=== PATIENT | female | born 1950 | race Caucasian/White ===

== ENCOUNTER → 2021-12-14 12:38 | Outpatient (CLI) | payer MEDICARE, BC, SELFPAY ==
[2021-12-14 14:01] LABS: Appearance Urine UA CLEAR; Bilirubin Urine UA NEGATIVE (NEGATIVE); Color Urine UA YELLOW; Glucose Urine UA NEGATIVE (Negative); Ketones Urine UA 1+ (NEGATIVE); Leukocyte Esterase Urine UA NEGATIVE (NEGATIVE); Nitrite Urine UA NEGATIVE (Negative); Occult Blood Urine UA 1+ (Negative); Protein Urine UA NEGATIVE (Negative); Specific Gravity Urine UA 1.015 (1.000-1.035); Urobilinogen Urine UA 0.2 E.U./dL (0.2)
[2021-12-14 14:05] LABS: pH Urine UA 7.5 (4.5-8.0)
[2021-12-14 14:12] LABS: Bacteria Urine None Seen; Culture Indicated Urine Cult Not Indicated; RBC Urine 1-5/HPF (0-5/HPF); WBC Urine None Seen (0-5/HPF)
[2021-12-14 15:13] LABS: Add Manual Diff / Slide Review NO; Basophils Absolute Auto 0 /uL (0-100); Basophils Percent Auto 0.8 % (0-2); Eosinophils Absolute Auto 100 /uL (0-450); Eosinophils Percent Auto 1.6 % (2-4); Hematocrit 43.2 % (36-46); Hemoglobin 15.2 g/dL (12.0-16.0); Lymphocytes Absolute Auto 1400 /uL (1100-4500); Lymphocytes Percent Auto 24.3 % (25-40); Mean Corpuscular Hemoglobin 32.5 PG (26-34); Mean Corpuscular Volume 92.8 fL (80-100); Monocytes Absolute Auto 400 /uL (0-900); Monocytes Percent Auto 6.3 % (3-14); Neutrophils Absolute Auto 3900 /uL (1500-7000); Platelet Count 256 X10^3/uL (150-400); Red Blood Cell Count 4.66 X10^6/uL (4.0-5.2); Red Cell Distribution Width 13.3 % (11.6-14.8); White Blood Cell Count 5.8 X10^3/uL (4.5-11.0)
[2021-12-14 15:39] LABS: BUN Creatinine Ratio 28.6 (6-22); Blood Urea Nitrogen 16 mg/dL (7-17); Calcium 10.4 mg/dL (8.4-10.2); Carbon Dioxide 32 mmol/L (22-32); Chloride 96 mmol/L (98-107); Estimated Glomerular Filt Rate > 60.0 mL/min (>60); Glucose 86 mg/dL (80-110); HEMOLYSIS < 15 (0-50); Sodium 137 mmol/L (137-145)
== END ==
PROVIDERS: PCP Nurse Practitioner Family; Referring Provider Orthopaedic Surgery; Visit Provider Orthopaedic Surgery
DX: Z01.818 Encounter for other preprocedural examination (principal); Z01.812 Encounter for preprocedural laboratory examination; N39.0 Urinary tract infection, site not specified
CPT/HCPCS: 36415; 80048; 81001; 85025; 93005; 93010

== ENCOUNTER → 2022-01-14 11:45 | Outpatient (CLI) | payer MEDICARE, BC, SELFPAY ==
[2022-01-14 13:35] LABS: COVID19 -Nasal RAPID Negative (Negative)
== END ==
PROVIDERS: PCP Nurse Practitioner Family; Visit Provider Family Medicine Sleep Medicine
DX: Z20.822 Contact with and (suspected) exposure to COVID-19 (principal)
CPT/HCPCS: 87635; C9803

== ENCOUNTER 2022-01-15 06:18 | Day surgery (SDC) | payer MEDICARE, BC, SELFPAY ==
[2021-12-31 08:56] VITALS: BMI 26.9
[2022-01-15] VITALS (11 sets, daily range): BP systolic 113–154; BP diastolic 41–88; PULSE 59–79; RESP 13–19; TEMP 36.1–37.2; O2SAT 94–97; BMI 26.9
--- NOTE | 2022-01-15 06:00 | DI.RAD.S_ITS ---
PROCEDURE: XR HIP W PEL IF DONE RT 2V INDICATIONS: prosthesis placement TECHNIQUE: 4 intraoperative images obtained of the pelvis. COMPARISON: None. FINDINGS: Bones: Intraoperative images obtained during right hip arthroplasty. Soft tissues: The visualized bowel gas pattern is normal. No suspicious soft tissue calcifications. IMPRESSION: Intraoperative images obtained during right hip arthroplasty. Dictated by: Tamiko Johns M.D. on 01/15/2022 at 16:28 Approved by: Tamiko Johns M.D. on 01/15/2022 at 16:54
[2022-01-15] MEDS: ACETAMINOPHEN 325 MG TABLET 975 MG PO (07:09)
[2022-01-15] MEDS: PREGABALIN 75 MG CAPSULE PO (07:09)
[2022-01-15] MEDS: VANCOMYCIN 1,000 MG/200 ML PIGGYBACK 200 MG IV (07:10)
[2022-01-15] MEDS: LACTATED RINGERS 1,000 ML 42 ML IV ×2 (07:11→09:27)
--- NOTE | 2022-01-15 07:45 | PM.PREOP ---
Pre-operative Note COVID-19 COVID-19 status: Negative Criteria for continued procedure: Expected advancement of disease process, Possibility delay results in more complex future surgery or treatment, Increased loss of function and Continuing or worsening of significant or severe pain Interval Note History & Physical reviewed/Exam performed by Physician: Yes Changes to H&P: No H&P completed within 30 days and has changed as indicated here:: family h/o malignant hyperthermia review with nursing and anaesthesia
--- NOTE | 2022-01-15 07:46 | PM.OP.1 ---
Operative Date/Time/Diagnoses Date of procedure: 01/15/22 Time of procedure: 08:00 Pre-op diagnosis: Severe right hip osteoarthritis Post-op diagnosis: same Procedure & Clinicians Procedure: Right total hip arthroplasty anterior approach Same procedure as scheduled: Yes Indications: Right total hip arthroplasty anterior approach Surgeon: Lucia Oliver On Call Pharmacy Technician: Abraham Boyle Anesthesia Type: Spinal Operative Notes Findings: Severe right hip osteoarthritis with marked synovitis, adequate stability and bone quality Closure Type: primary Specimen(s): none sent Prosthetic devices, grafts, tissues, transplants, or devices: [employer] size 50 R3 cup, size 3 standard offset anthology, 32 +0 Oxinium head and one 6.5 mm x 20 screw Estimated Blood Loss (mL): 250 Blood products transfused: none Procedure in detail: The patient was brought to the operating room. Patient was carefully positioned in the supine position. Time-out was performed and antibiotics were given. Anesthesia was induced. She was positioned in the on the table in order to allow hyperextension of the hip. The rightlower extremity was prepped and draped in a standard sterile fashion. An anterior right hip incision was made 1 fingerbreadth lateral to the anterior superior iliac spine and extended distally towards the greater trochanter. Dissection was carried out through skin and subcutaneous tissues. Superficial hemostasis was achieved. The fascia over the tensor fascia allyson was defined and incised with a knife. Two Allis clamps were used to grasp the fascia. Tensor fascia allsyon was retracted laterally. A gelpi retractor was placed. Dissection was carried out down along the neck. The circumflex vessels were carefully identified and cauterized with the Aqua Mantis. There was good visualization of the femoral neck. A Cobra was placed superior to the neck and the gluteus fibers were carefully stripped from that superior aspect of the capsule. A 2nd retractor was placed along the inferior aspect of the neck. The rectus insertion along the capsule was partially released. A 3rd retractor that was then gently placed over the rim of the acetabulum under the rectus. Capsule was carefully incised and released from the intertrochanteric line circumferentially superior to the mid sagittal line and inferiorly to the mid sagittal line until the lesser trochanter was palpable. A tag stitch was placed both in the superior and inferior limb of the capsular insertion. Along the acetabulum capsule was also released up to the mid sagittal 12:00 position. A portion of the labrum was resected. A saw was used to perform an osteotomy at the level of the intertrochanteric line and the junction of the superior femoral neck leaving approximately 1 finger breath of residual inferior neck above the lesser trochanter. A 2nd cut was made along the femoral neck at the base of the head and a napkin ring of neck was removed. Corkscrew was placed in the femoral head and the head was removed without difficulty. Retractors were then repositioned around the acetabulum. Residual labrum was resected and additional osteophytes were removed. A reamer that was 4 mm below the templated size was placed by hand in the acetabulum and it was reamed to centralize the acetabulum. It was then reamed up to 2 under the templated size and fluoroscopy was brought in to confirm the position of the reaming and depth of reaming. I reamed 1 under the anticipated size and touched the rim with line to line reaming. A trial cup was placed and noted that it was appropriately sized and fluoroscopy confirmed position and depth. The component was open and inserted without difficulty fluoroscopic imaging was used to confirm that the cup had been adequately seated and was well positioned. It was further stabilized with a single screw. Neutral poly liner was placed. The cup was tested and noted to be stable. Attention was then directed to the femur. The femur was gently hyperextended additional capsular release was performed as needed in order to allow adequate visualization of the proximal femur with elevation of the femur. Patient was placed in a hyperextended slightly adducted position with maximum external rotation. Box osteotome was used to check for any residual neck as well as sclerotic bone along the trochanter. [place] pepper was placed in the femur. Additional broaching was performed. Canal finder was used to determine the alignment of the canal and position. Size 1 broach was placed. The canal was then appropriately broached up to the templated size as long as there was adequate stability of the broach and serial advancement of the broach without excessive impingement. Specific attention was directed at avoiding varus attempting to direct the distal aspect of the broach more anteriorly and avoiding excessive anteversion. Trial reduction showed acceptable range of motion, good stability, no posterior impingement, adventist of leg length and appropriate lateral shuck. I also hyperflexed the hip and checked that there was no impingement anteriorly and there was good stability with flexion, adduction and internal rotation. Marcaine and Exparel were injected. The stem was placed without difficulty. Repeat trial reduction and x-ray showed acceptable overall position, length, and no evidence of the femoral fracture. Final head was placed. Wound was meticulously irrigated with normal saline. The hip was reduced and additional Exparel and Marcaine were injected. The capsule was closed with interrupted nonabsorbable sutures. The fascia of the tensor was closed with interrupted and running Vicryl. No drain was placed. Any tensor fascia allyson muscle that appeared to be contused or injured which was a minimal amount was carefully resected. Capsule around the tensor was injected with Exparel and Marcaine. The skin was closed with barbed stitches for the subcutaneous tissue and skin. We also used surgical glue. The wound was dressed sterilely. Brief Betadine soak was also used and was meticulously irrigated with normal saline. Patient was transferred to recovery room in satisfactory condition. Complications: none Post-operative Condition: stable Disposition: Acute Care Plan for aftercare: The patient will be maintained on a standard total hip replacement protocol with weight bearing as tolerated and anterior hip precautions. The patient will receive Aspirin and sequential compression devices for DVT prophylaxis. The patient will be discharged home when safe for the home environment.
[2022-01-15] MEDS: CEFAZOLIN 2 GM/20 ML SYRINGE IV (08:23)
[2022-01-15] MEDS: TRANEXAMIC ACID 1,000 MG VIAL 1000 MG INJ ×2 (08:40→10:47)
--- NOTE | 2022-01-15 08:55 | SUR.OPER ---
Supine on padded [place] table with bilateral legs secured in padded positioning boots and suspended in positioning spars, operative right leg in traction per surgeon. Head on one pillow. Arm on left non-operative side secured on padded armboard <90 degrees abduction. Arm on operative side padded and resting across chest then secured with tape over sheet. Padded perineal post in place per surgeon.
--- NOTE | 2022-01-15 08:55 | SUR.OPER ---
Supine on padded [place] table with bilateral legs secured in padded positioning boots and suspended in positioning spars, operative right leg in traction per surgeon. Head on one pillow. Arm on non-operative side secured on padded armboard <90 degrees abduction. Arm on operative side padded and resting across chest then secured with tape over sheet. Padded perineal post in place per surgeon.
--- NOTE | 2022-01-15 09:00 | DI.RAD.S_ITS ---
PROCEDURE: XR HIP W PEL IF DONE RT 2V INDICATIONS: RIGHT TOTAL HIP TECHNIQUE: AP pelvis and lateral view of the right hip acquired. COMPARISON: [facility], [place], XR PELVIS WITH BILATERAL LATERAL HIPS, 11/21/2021, 8:54. [facility], CR, XR HIP W PEL IF DONE RT 2V, 01/15/2022, 10:42. FINDINGS: Bones: Patient is status post right hip arthroplasty, with hardware components in expected positions. The hip joint appears congruent. The visualized bony structures appear intact. Moderate osteoarthritic degenerative changes noted in the left hip. Soft tissues: Overlying postoperative changes are noted. No suspicious soft tissue densities. IMPRESSION: Expected postsurgical change for right hip arthroplasty. Dictated by: Becca Brooke MD, PhD on 01/15/2022 at 17:32 Approved by: Becca Brooke MD, PhD on 01/15/2022 at 17:33
[2022-01-15] MEDS: BUPIVACAINE 0.25% (PF) 60 ML, EPINEPHrine 0.3 MG INJ (09:27)
[2022-01-15] MEDS: BUPIVACAINE LIPOSOME 266 MG/20 ML VIAL INJ (09:29)
--- NOTE | 2022-01-15 11:45 | SUR.PHASEI ---
Report to floor RN
[2022-01-15] MEDS: OXYCODONE/ACETAMINOPHEN 5/325 TABLET 1 TAB PO (11:51)
--- NOTE | 2022-01-15 12:06 | SUR.PHASEI ---
Report to Elizabeth GARCIA
[2022-01-15] MEDS: LACTATED RINGERS 1,000 ML 125 ML IV (12:07)
--- NOTE | 2022-01-15 12:58 | SUR.PHASEII ---
Elizabeth GARCIA from floor notified of patient family history of malignant hyperthermia and during time in PACU temps normal. RN states understanding. Charge nurse Rosemary notified as well of history and importance to continue to assess temp
[2022-01-15] MEDS: ONDANSETRON 4 MG/2 ML INJ IV (13:24)
[2022-01-15] MEDS: OXYCODONE IR 5 MG TABLET PO ×2 (13:24→17:30)
[2022-01-15] MEDS: ACETAMINOPHEN 325 MG TABLET 650 MG PO (15:36)
--- NOTE | 2022-01-15 15:42 | PT.IIE ---
Current Diagnoses Pain in right hip (01/15/22) Surgery Performed Operation Date: 01/15/22 07:45 Actual Procedures p Total Hip Arthroplasty/Anterior Approach(Right) - Lucia Oliver MD Medical History (Last Updated 12/31/21 @ 10:05 by Bren Santana RN) Anesthesia Anxiety Arrhythmia Bilateral cataracts Constipation Eczema Family history of malignant hyperthermia History of hypertensive crisis History of one miscarriage HLD (hyperlipidemia) HTN (hypertension) LBBB (left bundle branch block) HECTOR on CPAP Osteoarthritis Positional vertigo Stomach ulcer Physical Therapy Inpatient Evaluation/Re-Eval M1 PT/OT-IP Prior Functional Status Start: 01/15/22 17:36 Freq: NEEDED Status: Active Protocol: Document 01/15/22 15:42 AB (Rec: 01/15/22 17:47 AB [id number]) Medical Review Prior Functional Status Medical History Reviewed Yes Communication able to make needs known Mobility and Gait pt stated that she is modified independent with all mobiltiies and ambulation using FWW indoors and SPC for outdoor mobility Social History Household Members spouse Living Arrangements House Number of Floors (Floors) Two Floors Number of Stairs To Enter/Railing? 1 platform step to enter 2 steps B rails to get up into the toilet/bathroom level Home Environment Standard Height Toilet,Tub/ Shower Home Equipment Front Wheel Walker,Straight Cane,Hand Held Shower,Grab Bars In Shower M2 PT-IP Current Condition Start: 01/15/22 17:36 Freq: NEEDED Status: Active Protocol: Document 01/15/22 15:42 AB (Rec: 01/15/22 17:47 AB [id number]) Physical Therapy Current Condition Current Condition Evaluation Date 01/15/22 Treatment Diagnosis s/p R LIDIA anterior approach; difficulty in walking Onset Date 01/15/22 M3 PT-IP Subjective Start: 01/15/22 17:36 Freq: NEEDED Status: Active Protocol: Document 01/15/22 15:42 AB (Rec: 01/15/22 17:47 AB [id number]) Subjective Physical Therapy Visit Type Type Initial Evaluation Visit Start Time 15:42 Visit Stop Time 16:50 Total Visit Minutes 66 Number of SPORTS BOOKMAKER Visits 0 Physical Therapy Visit Comments Patient Comments agreeable to do PT; requested to use the toilet Therapy Pain Assessment Pain When Pain Assessed At Rest Pain Present Pain Present Pain Reported Location Right Hip Intensity 4 Scale Used Numeric (0 - 10) Pain Management Techniques Apply Cold,Distraction, Modification of Treatment,Re- positioning,Timing of Activity with Medications M4 PT-IP Mobility and Gait Start: 01/15/22 17:36 Freq: NEEDED Status: Active Protocol: Document 01/15/22 15:42 AB (Rec: 01/15/22 17:47 AB [id number]) PT-Bed Mobility Assessment Supine to Sit Supine to Sit Standby Assistance PT-Transfer Assessment Sit to and From Stand Sit to and from Stand Standby Assistance,Contact Guard Assistance,1 Person Assistance Equipment Transfer Assistive Device Gait Belt,Front Wheeled Walker Orthotic/Prosthetic Devices or Brace: No Transfers Transfer Destination Toilet Transfer Technique ambulated Transfer Ability Level of Assist Contact Guard Assistance,1 Person Assistance,Use of Upper Extremities Comments Mobility Comments pt agreed to do PT. spouse in room with pt. Educated pt and spouse regarding anterior hip precautions. Pt able to recall precautions. completed supine to sit SBA. able to sit on EOB SBA. no c/o dizziness. BP: 155/62. pt requested to use the toilet. completed sit to stand CGA and ambulated to the toilet using FWW CGA. educated spouse on how to assist pt and spouse assisted pt out from the toilet and ambulated pt towards the sink using fWW CGA . pt was able to maintain standing using FWW for support CGA while completing handwashing. pt ambulated to the chair using fWW with spouse assisting CGA. educated spouse on how to use safety belt. also educated pt and spouse regarding stair training. spouse was able to put safety belt on pt. pt completed sit to stand CGA and ambulated ~ 225 towards the stairs using FWW CGA. spouse was able to assist pt safely. completed up /down platform step using FWW min A initially with PT cueing . repeated with spouse assisting without cues needed from PT. pt completed up/down 3 steps using B rail min A with spouse assisting. pt ambulated back towards her room ~ 50 ft using fWW CGA. assisted pt back to her room. Pt ambulated from w/c to chair CGA using FWW. positioned pt on chair. pt and spouse without any other concerns and pt feels she is ready to go home. Informed nurse regarding pt's mobility. Gait Assessment Gait Gait Assistance Required: Contact Guard Assist,1 Person Assist Distance (Feet) 225 Able to Maintain Weight Bearing Status Yes During Gait Assistive Devices Assistive Device Gait Belt,Front Wheeled Walker Orthotic/Prosthetic Devices or Brace: No Gait Deviations General Gait Pattern Decreased Stride Length, Decreased Feet Clearance Factors Limiting Gait Function Factors Limiting Gait Function Decreased Activity Tolerance, Decreased Strength,Limited Range of Motion,Pain,Poor Balance Stair Climbing Assessment Evaluation Level of Assist On Stairs Minimal Assistance Devices Stair Climbing Assistive Devices Front Wheel Walker,Left Railing,Right Railing Technique/Endurance Stair Climbing Direction Ascend and Descend Stair Climbing Technique Step to Step Number of Steps Climbed 3 Query Text: Stair Climbing Set # Repetitions (reps) 1 Comments Stair Climbing Comments pls refer to mobility section for details PT-Balance Assessment Sitting Balance and Reactions Static Sitting Balance Ability Normal Dynamic Sitting Balance Ability Good Standing Balance and Reactions Static Standing Balance Ability Fair Dynamic Standing Balance Ability Fair Device Used FWW M5 PT-IP Objective Assessments Start: 01/15/22 17:36 Freq: NEEDED Status: Active Protocol: Document 01/15/22 15:42 AB (Rec: 01/15/22 17:47 [email or web address]) Orientation Orientation/Cognition Level of Alertness Alert Orientation Name,Age,Birthday,Month,Date, Year,Day of Week,Place, Situation Language Function Ability No Deficits Noted Safety Awareness Understands Safety Issues Memory Description No Deficits Noted Gross Range of Motion Lower Extremity ROM Assessment Within Functional Limits Strength Lower Extremity Strength Assessment Right Impaired Hip 3+/5 Knee 4-/5 Coordination Assessment Gross Coordination Gross Coordination WNL Sensation Assessment Sensation Gross Sensation WNL Muscle Tone Muscle Tone WNL Yes M6 PT-IP Treatment Start: 01/15/22 17:36 Freq: NEEDED Status: Active Protocol: Document 01/15/22 15:42 AB (Rec: 01/15/22 17:47 AB [email or web address]) Physical Therapy Treatment Education Education Provided Precautions,Weight Bearing Status,Post-Op Packet,Safety M7 PT-IP Assessment and Plan Start: 01/15/22 17:36 Freq: NEEDED Status: Active Protocol: Document 01/15/22 15:42 AB (Rec: 01/15/22 17:47 [email or web address]) PT Summary Assessment and Plan Potential Rehabilitation Potential Good Status of Condition at Evaluation Stable Summary Impairments Pain,ROM,Strength,Balance, Coordination,Sensation,Tone, Cognition,Bed Mobility, Transfers,Gait,Activity Tolerance Assessment Summary Pt requiring CGA with ambulation using FWW and min A with stair climbing. caregiver training conducted and spouse was able to assist pt safely. Pt may go home when medically stable. Goals Bed Mobility Goal Independent Transfer Goal Independent,Front Wheeled Walker Gait Goal Independent,Front Wheel Walker Gait Distance 300 Other Goals up/down 1 platform step using FWW mod I up/down 2 steps B rail mod I Days to Meet Goals 3 Frequency of Treatment Frequency Of Treatment Twice a Day Treatment Plan Physical Therapy Treatment Plan Bed Mobility Training,Transfer Training,Gait Training, Therapeutic Exercise,Balance Retraining,Post Op Education, Discharge Planning,Hot or Cold Pack,Neuromuscular Re-ed, Coordination Retraining,Manual Therapy Precautions Anterior Hip Precautions No Hip Extension,No Hip External Rotation Weight Bearing Status Weight Bearing Status Weight Bear as Tolerated Allowed Weight Bearing Amount (enter % RLE WBAT or #) (%) Recommendations To Nursing Amount of Assist Needed 1 Person Assist Discharge Recommendations PT Discharge Recommendations Home with Assistance, Outpatient PT Transportation Needs at Discharge Private Vehicle
[2022-01-15] MEDS: INFLUENZA HD VACCINE 0.7 ML SYRINGE IM (17:35)
--- NOTE | 2022-01-15 18:01 | PC.NURSE ---
Pt discharged at 1750, escorted off floor in wheelchair, accompanied by hospital staff. waiting at ER entrance with car. IV removed, flu shot administered and discharge teaching completed, including wound care and follow up appointments. Pt left floor with all belongings in possession.
== END 2022-01-15 18:00 | disposition home or self-care (01) ==
LOC: OR 06:22 → AC 06:23
PROVIDERS: PCP Nurse Practitioner Family; Referring Provider Orthopaedic Surgery; Visit Provider Orthopaedic Surgery
PROC: (CPT 27130; principal; 2022-01-15 07:45)
DX: M16.11 Unilateral primary osteoarthritis, right hip (principal); I10 Essential (primary) hypertension; G47.33 Obstructive sleep apnea (adult) (pediatric); Z23 Encounter for immunization
CPT/HCPCS: 27130; 73502; 76000; 90471; 90662; 97161; 97530; C1776; C9290; J0171; J0690; J2250; J2405; J3010

== ENCOUNTER → 2022-08-06 14:32 | Outpatient (CLI) | payer MEDICARE, BC, SELFPAY ==
[2022-01-15 06:36] VITALS: BMI 26.9
[2022-08-06 15:44] LABS: Add Manual Diff / Slide Review NO; Basophils Absolute Auto 100 /uL (0-100); Basophils Percent Auto 1.4 % (0-2); Eosinophils Absolute Auto 100 /uL (0-450); Eosinophils Percent Auto 1.6 % (2-4); Hematocrit 39.8 % (36-46); Hemoglobin 14.1 g/dL (12.0-16.0); Lymphocytes Absolute Auto 1300 /uL (1100-4500); Mean Corpuscular HGB Conc 35.3 % (30-36); Mean Corpuscular Volume 93.3 fL (80-100); Monocytes Absolute Auto 400 /uL (0-900); Monocytes Percent Auto 8.7 % (3-14); Neutrophils Absolute Auto 2700 /uL (1500-7000); Neutrophils Percent Auto 60.3 % (50-75); Platelet Count 236 X10^3/uL (150-400); Red Blood Cell Count 4.27 X10^6/uL (4.0-5.2); Red Cell Distribution Width 13.8 % (11.6-14.8); White Blood Cell Count 4.5 X10^3/uL (4.5-11.0)
[2022-08-06 16:06] LABS: BUN Creatinine Ratio 20.3 (6-22); Blood Urea Nitrogen 12 mg/dL (7-17); Calcium 9.2 mg/dL (8.4-10.2); Carbon Dioxide 28 mmol/L (22-32); Chloride 96 mmol/L (98-107); Estimated Glomerular Filt Rate > 60 mL/min (>60); Glucose 83 mg/dL (80-110); HEMOLYSIS < 15 (0-50); Potassium 3.9 mmol/L (3.4-5.1); Sodium 133 mmol/L (137-145)
[2022-08-06 17:20] LABS: Appearance Urine UA CLEAR; Bilirubin Urine UA NEGATIVE (NEGATIVE); Color Urine UA YELLOW; Glucose Urine UA NEGATIVE (Negative); Ketones Urine UA 1+ (NEGATIVE); Leukocyte Esterase Urine UA NEGATIVE (NEGATIVE); Nitrite Urine UA NEGATIVE (Negative); Occult Blood Urine UA TRACE-LYSED (Negative); Protein Urine UA NEGATIVE (Negative); Specific Gravity Urine UA 1.015 (1.000-1.035); Urobilinogen Urine UA 0.2 E.U./dL (0.2)
[2022-08-06 17:45] LABS: Bacteria Urine None Seen; Culture Indicated Urine Cult Not Indicated; RBC Urine None Seen (0-5/HPF); Squamous Epithelial Cell Urine 0-1 /HPF (0-5/HPF); WBC Urine None Seen (0-5/HPF)
== END ==
PROVIDERS: PCP Nurse Practitioner Family; Referring Provider Orthopaedic Surgery; Visit Provider Orthopaedic Surgery
DX: N39.0 Urinary tract infection, site not specified (principal); Z01.812 Encounter for preprocedural laboratory examination
CPT/HCPCS: 36415; 80048; 81001; 85025

== ENCOUNTER → 2022-09-04 12:59 | Outpatient (CLI) | payer MEDICARE, BC, SELFPAY ==
[2022-01-15 06:36] VITALS: BMI 26.9
[2022-09-04 13:48] LABS: COVID19 -Nasal RAPID Negative (Negative)
== END ==
PROVIDERS: PCP Nurse Practitioner Family; Referring Provider Orthopaedic Surgery; Visit Provider Orthopaedic Surgery
DX: Z20.822 Contact with and (suspected) exposure to COVID-19 (principal)
CPT/HCPCS: 87635; C9803

== ENCOUNTER 2022-09-05 06:08 | Day surgery (SDC) | payer MEDICARE, BC, SELFPAY ==
[2022-01-15 06:36] VITALS: BMI 26.9
[2022-08-26 13:31] VITALS: BMI 27.2
[2022-09-05] VITALS (13 sets, daily range): BP systolic 80–158; BP diastolic 46–81; PULSE 60–85; RESP 10–23; TEMP 35.6–37.1; O2SAT 92–98; BMI 27.2
[2022-09-05] MEDS: LACTATED RINGERS 1,000 ML 42 ML IV ×2 (07:37→11:20)
--- NOTE | 2022-09-05 07:39 | P.OP_ITS ---
Operative Date/Time/Diagnoses Date of procedure: 09/05/22 Time of procedure: 07:40 Pre-op diagnosis: Left hip osteoarthritis Post-op diagnosis: same Procedure & Clinicians Procedure: Left total hip arthroplasty anterior approach Same procedure as scheduled: Yes Indications: The patient has had progressively worsening left hip pain with radiographic changes consistent with arthritis. Non-operative management has failed and the patient has requested total hip replacement. The risks, benefits and alternatives to surgery were discussed with the patient prior to proceeding. Risks discussed included, but were not limited to, failure to relieve pain, leg length discrepancy, dislocation, stiffness, infection, nerve damage, deep venous thrombosis, pulmonary embolism, stroke, coma, heart attack, permanent paralysis and , as well as the potential need for eventual revision of the prosthetic. Surgeon: Lucia Oliver [employer] Merchandising: Abraham Boyle Anesthesia Type: General and Spinal Operative Notes Findings: Severe left hip OA, adequate stability Closure Type: primary Specimen(s): none sent Prosthetic devices, grafts, tissues, transplants, or devices: Oliver and nephew R3 48, anthology standard offset 3, neutral poly liner,one 6.5 mm screw, +0 Oxinium head Estimated Blood Loss (mL): 200 Blood products transfused: none Procedure in detail: The patient was brought to the operating room. Patient was carefully positioned in the supine position. Time-out was performed and antibiotics were given. Anesthesia was induced. She was positioned in the OR on the table in order to allow hyperextension of the hip. The left lower extremity was prepped and draped in a standard sterile fashion. An anterior left hip incision was made 1 fingerbreadth lateral to the anterior superior iliac spine and extended distally towards the greater trochanter. Dissection was carried out through skin and subcutaneous tissues. Superficial hemostasis was achieved. The fascia over the tensor fascia allyson was defined and incised with a knife. Two Allis clamps were used to grasp the fascia. Tensor fascia allyson was retracted laterally. A gelpi retractor was placed. Dissection was carried out down along the neck. The circumflex vessels were carefully identified and cauterized with the Aqua Mantis. There was good visualization of the femoral neck. A Cobra was placed superior to the neck and the gluteus fibers were carefully stripped from that superior aspect of the capsule. A 2nd retractor was placed along the inferior aspect of the neck. The rectus insertion along the capsule was partially released. A 3rd retractor that was then gently placed over the rim of the acetabulum under the rectus. Capsule was carefully incised and released from the intertrochanteric line circumferentially superior to the mid sagittal line and inferiorly to the mid sagittal line until the lesser trochanter was palpable. A tag stitch was placed both in the superior and inferior limb of the capsular insertion. Along the acetabulum capsule was also released up to the mid sagittal 12:00 position. A portion of the labrum was resected. A saw was used to perform an osteotomy at the level of the intertrochanteric line and the junction of the superior femoral neck leaving approximately 1 finger breath of residual inferior neck above the lesser trochanter. A 2nd cut was made along the femoral neck at the base of the head and a napkin ring of neck was removed. Corkscrew was placed in the femoral head and the head was removed without difficulty. Retractors were then repositioned around the acetabulum. Residual labrum was resected and additional osteophytes were removed. A reamer that was 4 mm below the templated size was placed by hand in the acetabulum and it was reamed to centralize the acetabulum. It was then reamed up to 2 under the templated size and fluoroscopy was brought in to confirm the position of the reaming and depth of reaming. I reamed 1 under the anticipated size. A trial cup was placed and noted that it was appropriately sized and fluoroscopy confirmed position and depth. The component was open and inserted without difficulty fluoroscopic imaging was used to confirm that the cup had been adequately seated and was well positioned. It was further stabilized with a single screw. Neutral poly liner was placed. The cup was tested and noted to be stable. Attention was then directed to the femur. The femur was gently hyperextended additional capsular release was performed as needed in order to allow adequate visualization of the proximal femur with elevation of the femur. Patient was placed in a hyperextended slightly adducted position with maximum external rotation. Box osteotome was used to check for any residual neck as well as sclerotic bone along the trochanter. [place] pepper was placed in the femur. Additional broaching was performed. Canal finder was used to determine the alignment of the canal and position. Size 1 broach was placed. The canal was then appropriately broached up to the templated size as long as there was adequate stability of the broach and serial advancement of the broach without excessive impingement. Specific attention was directed at avoiding varus attempting to direct the distal aspect of the broach more anteriorly and avoiding excessive anteversion. Trial reduction showed acceptable range of motion, good stability, no posterior impingement, gnosticist of leg length and appropriate lateral shuck. I also hyperflexed the hip and checked that there was no impingement anteriorly and there was good stability with flexion, adduction and internal rotation. Marcaine and Exparel were injected. The stem was placed without difficulty. Repeat trial reduction and x-ray showed acceptable overall position, length, and no evidence of the femoral fracture. Final head was placed. Wound was meticulously irrigated with normal saline. The hip was reduced and additional Exparel and Marcaine were injected. The capsule was closed with interrupted nonabsorbable sutures. The fascia of the tensor was closed with interrupted and running Vicryl. No drain was placed. Any tensor fascia allyson muscle that appeared to be contused or injured which was a minimal amount was carefully resected. Capsule around the tensor was injected with Exparel and Marcaine. The skin was closed with barbed stitches for the subcutaneous tissue and skin. We also used surgical glue. The wound was dressed sterilely. Brief Betadine soak was also used and was meticulously irrigated with normal saline. Patient was transferred to recovery room in satisfactory condition. Complications: none Post-operative Condition: stable Disposition: Acute Care Plan for aftercare: The patient will be maintained on a standard total hip replacement protocol with weight bearing as tolerated and anterior hip precautions. The patient will receive Aspirin and sequential compression devices for DVT prophylaxis. The patient will be discharged home when safe for the home environment.
--- NOTE | 2022-09-05 07:39 | PM.PREOP ---
Pre-operative Note COVID-19 COVID-19 status: Negative Interval Note History & Physical reviewed/Exam performed by Physician: Yes Changes to H&P: No
[2022-09-05] MEDS: CEFAZOLIN 2 GM/100 ML PREMIX 100 ML IV (07:47)
--- NOTE | 2022-09-05 08:00 | DI.RAD.S_ITS ---
PROCEDURE: XR HIP W PEL IF DONE LT 2V INDICATIONS: LEFT ANTERIOR HIP TECHNIQUE: AP pelvis and lateral view of the left hip acquired. COMPARISON: [facility], CR, XR HIP W PEL IF DONE LT 2V, 09/05/2022, 10:37. [facility], CR, XR PELVIS WITH LATERAL HIP RIGHT, 08/23/2022, 12:15. [facility] [place], CR, XR PELVIS WITH LATERAL HIP RIGHT, 01/30/2022, 9:34. FINDINGS: Patient is status post left hip arthroplasty, with hardware components in expected positions. The hip joint appears congruent. The visualized bony structures appear intact. Note is made of right hip arthroplasty. Overlying postoperative changes are noted. No suspicious soft tissue densities. IMPRESSION: Expected postsurgical changes after left hip arthroplasty. Dictated by: Juanito Ennis M.D. on 09/05/2022 at 10:55 Approved by: Juanito Ennis M.D. on 09/05/2022 at 10:57
[2022-09-05] MEDS: TRANEXAMIC ACID 1,000 MG VIAL 2000 MG INJ ×2 (08:29→10:04)
--- NOTE | 2022-09-05 08:35 | SUR.OPER ---
Supine on padded [place] table with bilateral legs secured in padded positioning boots and suspended in positioning spars, operative leg in traction per surgeon. Head on one pillow. Arm on non-operative side secured on padded armboard <90 degrees abduction. Arm on operative side padded and resting across chest then secured with tape over sheet. Padded perineal post in place per surgeon.
[2022-09-05] MEDS: BUPIVACAINE 0.25% (PF) 30 ML, EPINEPHrine 0.15 MG INJ (08:40)
[2022-09-05] MEDS: BUPIVACAINE LIPOSOME 266 MG/20 ML VIAL INJ (08:41)
[2022-09-05] MEDS: ACETAMINOPHEN IV 1,000 MG/100 ML VIAL 400 MG IV (09:04)
--- NOTE | 2022-09-05 10:05 | DI.RAD.S_ITS ---
PROCEDURE: XR HIP W PEL IF DONE LT 2V INDICATIONS: POST OPERATIVE TOTAL LEFT HIP TECHNIQUE: AP pelvis and lateral view of the left hip acquired. COMPARISON: [facility], CR, XR PELVIS WITH LATERAL HIP RIGHT, 08/23/2022, 12:15. [facility], CR, XR HIP W PEL IF DONE LT 2V, 09/05/2022, 9:26. FINDINGS: Bones: Patient is status post left hip arthroplasty, with hardware components in expected positions. The hip joint appears congruent. The visualized bony structures appear intact. Stable right hip arthroplasty. Soft tissues: Overlying postoperative changes are noted. No suspicious soft tissue densities. IMPRESSION: Status post left total hip arthroplasty with expected postoperative findings. Stable right hip arthroplasty. Dictated by: Baljeet Colón M.D. on 09/05/2022 at 12:51 Approved by: Baljeet Colón M.D. on 09/05/2022 at 12:51
--- NOTE | 2022-09-05 10:46 | SUR.PHASEI ---
at bedside until [id number]
--- NOTE | 2022-09-05 11:46 | SUR.PHASEI ---
Pt transferred to floor, bed lowered, call light within reach, walker, black bag, and belonging bag at bedside, vital signs wdl, report given to receiving RN.
[2022-09-05] MEDS: OXYCODONE IR 5 MG TABLET PO ×2 (12:04→15:23)
[2022-09-05] MEDS: ACETAMINOPHEN 325 MG TABLET 650 MG PO (12:04)
[2022-09-05] MEDS: LACTATED RINGERS 1,000 ML 125 ML IV (12:07)
[2022-09-05] MEDS: ONDANSETRON 4 MG/2 ML INJ IV (12:13)
--- NOTE | 2022-09-05 15:15 | P.PN_ITS ---
Subjective Subjective Interval history: She is doing well postoperatively would like to go home. She is been up to the bathroom without difficulty. She had a recent hip on the other side and is did not have problems. Exam Vital Signs (past 8 hours): - 09/05/22 07:17 09/05/22 10:38 09/05/22 11:14 Temperature 98.8 F 97.2 F L 97.4 F L Pulse Rate 66 85 68 Respiratory Rate 16 14 15 Blood Pressure 158/81 H 102/66 104/57 L Pulse Oximetry 98 92 95 Oxygen Delivery Method Room Air Nasal Cannula Room Air Oxygen Flow Rate 4 09/05/22 10:41 09/05/22 10:43 09/05/22 10:46 Temperature Pulse Rate 81 81 77 Respiratory Rate 23 21 10 L Blood Pressure 80/55 L 119/81 129/46 L Pulse Oximetry 96 96 97 Oxygen Delivery Method Nasal Cannula Nasal Cannula Room Air Oxygen Flow Rate 4 2 09/05/22 10:52 09/05/22 10:58 09/05/22 11:30 Temperature 97.8 F 98.4 F Pulse Rate 68 76 63 Respiratory Rate 23 16 18 Blood Pressure 100/78 102/73 139/59 L Pulse Oximetry 97 92 98 Oxygen Delivery Method Room Air Room Air Oxygen Flow Rate 0 09/05/22 12:00 09/05/22 13:00 09/05/22 13:30 Temperature 96.6 F L 96.1 F L 97.6 F Pulse Rate 60 60 70 Respiratory Rate 18 18 18 Blood Pressure 119/56 L 97/81 129/80 Pulse Oximetry 94 95 93 Oxygen Delivery Method Oxygen Flow Rate 0 0 0 09/05/22 14:30 Temperature 97.6 F Pulse Rate 68 Respiratory Rate 17 Blood Pressure 141/72 H Pulse Oximetry 93 Oxygen Delivery Method Oxygen Flow Rate 0 Oxygen Delivery Method Room Air Oxygen Flow Rate 0 Narrative Exam Narrative: Doing well postoperatively. Her dressing is dry. She is neurologically intact. Her calves are soft bilaterally. She is stable for discharge. [facility] Medical History Anesthesia Anxiety Arrhythmia Benign positional vertigo Bilateral cataracts Constipation Eczema Family history of malignant hyperthermia History of hypertensive crisis History of one miscarriage HLD (hyperlipidemia) HTN (hypertension) LBBB (left bundle branch block) HECTOR on CPAP Osteoarthritis Positional vertigo Stomach ulcer Surgical History History of surgical procedure History of total right hip replacement (01/15/22) Hx of dilation and curettage Social History household members: spouse Smoking Status: Former smoker alcohol intake: current Assessment & Plan Post-op Postoperative Procedures: Procedures Operation Date: 09/05/22 07:45 Actual Procedure Side Surgeon p Total Hip Arthroplasty/Anterior Approach Left Lucia Oliver MD Postoperative day: 0 Postoperative status: doing well Postoperative status narrative: Doing well weightbearing as tolerated. Okay to discharge to home. Postoperative plan: discharge
--- NOTE | 2022-09-05 15:31 | PC.NURSE ---
Pt arrived on floor from PACU 1130. A&Ox4, c/o moderate pain to L hip, medicated per JAN. Lungs CTA, bowel sounds hypoactive. C/o mild nausea, medicated with zofran per JAN. Dressing to L hip C/D/I, numbness to hip only, ice applied. +2 pedal pulses, CMS intact. Oriented to room and call light, bed in low position.
--- NOTE | 2022-09-05 16:04 | PT.IIE ---
Current Diagnoses Unilateral primary osteoarthritis, left hip (09/05/22) Surgery Performed Operation Date: 09/05/22 07:45 Actual Procedures p Total Hip Arthroplasty/Anterior Approach(Left) - Lucia Oliver MD Surgical History (Last Reviewed 09/05/22 @ 07:07 by Viky Hayes, RN) History of surgical procedure History of total right hip replacement (01/15/22) Hx of dilation and curettage Medical History (Last Reviewed 09/05/22 @ 07:07 by Viky Hayes, RN) Anesthesia Anxiety Arrhythmia Benign positional vertigo Bilateral cataracts Constipation Eczema Family history of malignant hyperthermia History of hypertensive crisis History of one miscarriage HLD (hyperlipidemia) HTN (hypertension) LBBB (left bundle branch block) HECTOR on CPAP Osteoarthritis Positional vertigo Stomach ulcer Physical Therapy Inpatient Evaluation/Re-Eval M1 PT/OT-IP Prior Functional Status Start: 09/05/22 15:57 Freq: NEEDED Status: Active Protocol: Document 09/05/22 15:57 [facility] (Rec: 09/05/22 16:04 [facility] [id number]) Medical Review Prior Functional Status Medical History Reviewed Yes Diet/Fluid Consistency Regular Communication WNL Mobility and Gait indep-had to use walker priro to other LIDIA d/t how bad pain was but recovered well Activities of Daily Living and IADL's indep Social History Household Members spouse Living Arrangements House Number of Floors (Floors) Two Floors Number of Stairs To Enter/Railing? 2 LUISA (lg platform) no rails Home Environment Standard Height Toilet,Walk in Shower,Tub/Shower Home Equipment Front Wheel Walker,Straight Cane,Raised Toilet Seat w/ Armrests,Long Handled Shoe Horn,Time Stamp Assembler,Sock Aid,Grab Bars In Shower Employment Status Retired Additional Social History Comment Pt did well post op RTHA 8 months ago and supportive; has OP PT set up M2 PT-IP Current Condition Start: 09/05/22 15:57 Freq: NEEDED Status: Active Protocol: Document 09/05/22 15:57 [facility] (Rec: 09/05/22 16:04 [facility] [id number]) Physical Therapy Current Condition Current Condition Evaluation Date 09/05/22 Treatment Diagnosis L LIDIA Onset Date 09/05/22 M3 PT-IP Subjective Start: 09/05/22 15:57 Freq: NEEDED Status: Active Protocol: Document 09/05/22 15:57 [facility] (Rec: 09/05/22 16:04 [facility] [id number]) Subjective Physical Therapy Visit Type Type Initial Evaluation Visit Start Time 15:27 Visit Stop Time 15:57 Total Visit Minutes 30 Number of ACTING PROFESSOR Visits 0 Therapy Pain Assessment Pain When Pain Assessed During Mobility Pain Present Pain Present Pain Reported M4 PT-IP Mobility and Gait Start: 09/05/22 15:57 Freq: NEEDED Status: Active Protocol: Document 09/05/22 15:57 [facility] (Rec: 09/05/22 16:04 [facility] [id number]) PT-Bed Mobility Assessment Supine to Sit Supine to Sit Independent Scooting Scooting to Edge of Bed Independent Scooting Up and Down in Bed Independent PT-Transfer Assessment Sit to and From Stand Sit to and from Stand Standby Assistance,Use of Upper Extremities Equipment Transfer Assistive Device Gait Belt,Front Wheeled Walker Orthotic/Prosthetic Devices or Brace: No Comments Mobility Comments supine to sit from flat bed indep and sit to stand SBA w/ no cues needed. Pt amb w/FWW with cues to relax shoulders 75ft and then went up/down stairs step to w/B rails then did platform step up/down w/ FWW w/PT stabizing walker SBA. Pt walked 75ft backt o room then sat in chair w/call light in reach. Gait Assessment Gait Gait Assistance Required: Standby Assistance Distance (Feet) 150 Able to Maintain Weight Bearing Status Yes During Gait Assistive Devices Assistive Device Gait Belt Orthotic/Prosthetic Devices or Brace: No Gait Deviations General Gait Pattern Antalgic,Decreased Stride Length Factors Limiting Gait Function Factors Limiting Gait Function Decreased Strength,Pain Stair Climbing Assessment Evaluation Level of Assist On Stairs Standby Assistance Devices Stair Climbing Assistive Devices Front Wheel Walker,Left Railing,Right Railing Technique/Endurance Stair Climbing Direction Ascend and Descend Stair Climbing Technique Step to Step PT-Balance Assessment Sitting Balance and Reactions Static Sitting Balance Ability Normal Dynamic Sitting Balance Ability Normal Standing Balance and Reactions Static Standing Balance Ability Good Dynamic Standing Balance Ability Good Device Used FWW M5 PT-IP Objective Assessments Start: 09/05/22 15:57 Freq: NEEDED Status: Active Protocol: Document 09/05/22 15:57 [facility] (Rec: 09/05/22 16:04 [facility] [id number]) Orientation Orientation/Cognition Level of Alertness Alert Language Function Ability No Deficits Noted Safety Awareness Understands Safety Issues Memory Description No Deficits Noted Gross Range of Motion Lower Extremity ROM Assessment Left Impaired Strength Lower Extremity Strength Assessment Left Impaired M6 PT-IP Treatment Start: 09/05/22 15:57 Freq: NEEDED Status: Active Protocol: Document 09/05/22 15:57 [facility] (Rec: 09/05/22 16:04 [facility] [id number]) Physical Therapy Treatment Education Education Provided Precautions,Weight Bearing Status,Post-Op Packet,Safety M7 PT-IP Assessment and Plan Start: 09/05/22 15:57 Freq: NEEDED Status: Active Protocol: Document 09/05/22 15:57 [facility] (Rec: 09/05/22 16:04 [facility] [id number]) PT Summary Assessment and Plan Potential Rehabilitation Potential Good Status of Condition at Evaluation Stable Summary Impairments Pain,ROM,Strength,Balance,Bed Mobility,Transfers,Gait, Activity Tolerance Assessment Summary Pt presents day of L LIDIA ant approach w/good pain control and motivation to return home today. She has good understanding of precautions and home is set up well with her supportive . She did well with all mobility today and was SBA or indep with all without much cues needed. She is cleared by PT to DC Home Goals Bed Mobility Goal Independent Transfer Goal Independent Gait Goal Independent Gait Distance 200ft Days to Meet Goals 3 Frequency of Treatment Frequency Of Treatment Twice a Day Treatment Plan Physical Therapy Treatment Plan Bed Mobility Training,Transfer Training,Gait Training, Therapeutic Exercise,Balance Retraining,Post Op Education, Neuromuscular Re-ed,Manual Therapy Other Recommendations and Next Treatment if here d/t change in medical Focus status-focus on gait and stairs Precautions Anterior Hip Precautions No Hip Extension,No Hip External Rotation Weight Bearing Status Weight Bearing Status Weight Bear as Tolerated Recommendations To Nursing Amount of Assist Needed Standby Assistance Discharge Recommendations PT Discharge Recommendations Home with Assistance, Outpatient PT Transportation Needs at Discharge Private Vehicle
--- NOTE | 2022-09-05 16:24 | PC.NURSE ---
Patient discharged at 1620, escorted off floor in wheelchair, accompanied by hospital staff and spouse. IV removed, discharge teaching provided including new medications, fall safety, wound care and follow up appointments. Questions and concerns answered. Patient left the floor with all belongings.
== END 2022-09-05 16:28 | disposition home or self-care (01) ==
LOC: OR 06:09 → AC 06:10
PROVIDERS: PCP Nurse Practitioner Family; Referring Provider Orthopaedic Surgery; Visit Provider Orthopaedic Surgery
PROC: (CPT 27130; principal; 2022-09-05 07:45)
DX: M16.12 Unilateral primary osteoarthritis, left hip (principal); G47.33 Obstructive sleep apnea (adult) (pediatric); I10 Essential (primary) hypertension
CPT/HCPCS: 27130; 01214; 73502; 76000; 97161; 97535; C1776; C9290; J0131; J0171; J0690; J1170; J2405; J2704; J3010